=== PATIENT | female | born 1965 | race Caucasian/White ===

== ENCOUNTER 2019-05-13 07:35 | Day surgery (SDC) | payer OTHER ==
[~2019-05-13] VITALS: Ht 167.6 cm; Wt 88.2 kg
[2019-05-13 08:15] VITALS: Ht 167.6 cm; Wt 88.2 kg
[2019-05-13 08:42] VITALS: BP 121/72; PULSE 62; RESP 16
[2019-05-13] MEDS ORDERED: FENTAnyl 50 MCG/ML VIAL ONE (09:20)
[2019-05-13] MEDS ORDERED: MIDAZOLAM 1 MG/ML 2 ML INJ ONE ×2 (09:20)
== END 2019-05-13 11:51 | disposition home or self-care (01) ==
LOC: GIL 07:35
PROVIDERS: ATTEND Internal Medicine Gastroenterology
DX: Z12.11 Encounter for screening for malignant neoplasm of colon (principal); K64.8 Other hemorrhoids; K57.30 Diverticulosis of large intestine without perforation or abscess without bleeding; K29.50 Unspecified chronic gastritis without bleeding; K21.9 Gastro-esophageal reflux disease without esophagitis
CPT/HCPCS: 43239; 45378; J2250; J3010; Z7610; 88305; 88312; 88341; 88342